=== PATIENT | male | born 1985 | race Caucasian/White ===

== ENCOUNTER 2017-08-28 20:50 | Emergency (ER) | payer BC ==
[~2017-08-28] VITALS: Ht 188 cm; Wt 75.0 kg
[~2017-08-28 20:50] MED LIST: ALEVE220 MG PO; BACTRIM DS 8001 TAB PO; CEPHALEXIN500 M1 PO; FLEXERIL 1010 MG/TAB PO; NO HOME MEDICATIONS; TYLENOL EXTRA500 M1 PO; ULTRAM 50MG TAB50 MG PO; VICODIN 5/5001 UDTAB PO; ZYRTEC10 MG PO
[2017-08-28 20:56] VITALS: TEMP 97.4
[2017-08-28 21:18] LABS: BASO # 0.1 (0.0-0.2); BASO % 0.4 % (0.0-2.0); EOS # 0.3 (0.0-0.7); GRAN # 12.3 (1.4-6.5); GRAN % 75.8 % (42.2-75.2); HEMOGLOBIN 14.3 g/dl (13.5-18.0); LYMPH # 2.3 (1.2-3.4); LYMPH % 14.2 % (20.0-51.0); MEAN CELL VOLUME 93 fl (80.0-100.0); MEAN CORPUSCULAR HEMOGLOBIN 31 pg (27.0-31.0); MEAN CORPUSCULAR HGB CONC 33 g/dl (33.0-37.0); MEAN PLATELET VOLUME 9.6 fl (7.4-10.4); MONO # 1.2 (0.1-0.6); MONO % 7.2 % (1.7-9.3); PLATELET COUNT 478 K/mm3 (130-400); RED BLOOD COUNT 4.61 M/mm3 (4.20-5.60); REDCELL DISTRIBUTION WIDTH-CV 13.4 % (11.5-14.5)
[2017-08-28 21:24] LABS: PROTHROMBIN TIME 11.3 SECONDS (9.7-12.8)
[2017-08-28] MEDS ORDERED: ASPIRIN 32325 MG/TAB PO (21:24)
[2017-08-28 21:25] LABS: ALANINE AMINOTRANSFERASE 57 U/L (21-72); ALBUMIN 4.4 gm/dL (3.5-5.0); ALKALINE PHOSPHATASE 179 U/L (50-136); ANION GAP 15 mmol/L (7-16); AST,SGOT 34 U/L (15-37); BILIRUBIN,TOTAL 0.5 mg/dL (0.0-1.0); BLOOD UREA NITROGEN 15 mg/dL (9-20); CALCIUM 10.1 mg/dL (8.4-10.2); CARBON DIOXIDE 27 mmol/L (22-30); CHLORIDE 100 mmol/L (98-107); CREATININE, serum 0.64 mg/dL (0.66-1.25); GLUCOSE 111 mg/dL (74-106); POTASSIUM 4.2 mmol/L (3.4-5.0); SODIUM 141 mmol/L (137-145); TOTAL PROTEIN 9.5 gm/dL (6.4-8.2)
[2017-08-28] MEDS ORDERED: NEURONTIN300 MG/CAP PO (21:25)
[2017-08-28 21:26] LABS: PARTIAL THROMBOPLASTIN TIME 36.6 SECONDS (26.0-37.0)
[2017-08-28] MEDS ORDERED: TYLENOL 500MG500 MG PO (21:26)
[2017-08-28] MEDS ORDERED: ROBAXIN 50500 MG/TAB PO (21:29)
[2017-08-28 21:42] LABS: TROPONIN-I < 0.012 ng/mL (0.000-0.034)
[2017-08-28] MEDS ORDERED: MIRALAX PA17 GM/Dose PO (21:49)
[2017-08-28] MEDS ORDERED: ROXICODONE 55 MG/TAB PO (21:49)
[2017-08-28] MEDS ORDERED: SENOKOT S 50 MG1 TAB PO (21:50)
[2017-08-28 22:13] VITALS: BP 125/84; PULSE 95
== END 2017-08-28 21:54 | disposition short-term general hospital (02) ==
LOC: COL.ER 20:50
PROVIDERS: Family Medicine
DX: I21.3 ST elevation (STEMI) myocardial infarction of unspecified site (principal); F17.210 Nicotine dependence, cigarettes, uncomplicated; Z79.02 Long term (current) use of antithrombotics/antiplatelets; Z79.82 Long term (current) use of aspirin
CPT/HCPCS: J1644; J2270; J3101

== ENCOUNTER 2020-06-24 22:48 | Emergency (ER) | payer BC ==
[~2020-06-24] VITALS: Ht 188 cm; Wt 79.5 kg
[~2020-06-24 22:48] MED LIST changes: +ASPIRIN 32325 MG/TAB PO; +MIRALAX PA17 GM/Dose PO; +NEURONTIN300 MG/CAP PO; +ROBAXIN 50500 MG/TAB PO; +ROXICODONE 55 MG/TAB PO; +SENOKOT S 50 MG1 TAB PO; +TYLENOL 500MG500 MG PO
[2020-06-24] MEDS ORDERED: PREDNISONE20 MG PO (23:33)
[2020-06-25] VITALS: BP 135/82; PULSE 75; TEMP 98
== END 2020-06-25 | disposition home or self-care (01) ==
LOC: COL.ER 22:48
DX: L25.9 Unspecified contact dermatitis, unspecified cause (principal); F17.210 Nicotine dependence, cigarettes, uncomplicated; Z88.0 Allergy status to penicillin; Z79.82 Long term (current) use of aspirin
CPT/HCPCS: J2930; J7512

== ENCOUNTER 2022-12-22 12:22 | Emergency (ER) | payer BC ==
[~2022-12-22] VITALS: Ht 188 cm; Wt 75.0 kg
[~2022-12-22 12:22] MED LIST changes: +PREDNISONE20 MG PO
[2022-12-22 12:40] VITALS: BP 127/75; TEMP 98.2
[2022-12-22] MEDS ORDERED: PREDNISONE20 MG PO (13:13)
[2022-12-22 13:28] VITALS: PULSE 72
== END 2022-12-22 13:28 | disposition home or self-care (01) ==
LOC: COL.ER 12:22
DX: L23.7 Allergic contact dermatitis due to plants, except food (principal); F17.210 Nicotine dependence, cigarettes, uncomplicated; Z28.310 Unvaccinated for COVID-19